=== PATIENT | male | born 1980 | race Caucasian/White ===

== ENCOUNTER → 2021-04-30 | Outpatient (CLI) | payer BC | LOC: COL.RAD 13:36 | DX: N50.89 Other specified disorders of the male genital organs (principal) ==

== ENCOUNTER → 2021-05-01 | Outpatient (CLI) | payer BC ==
[2021-05-01 22:10] LABS: HCG SERUM, QUANTITATIVE (BETA) <2 mIU/mL (0-5)
== END ==
LOC: COL.LAB 10:28
PROVIDERS: Urology
DX: D40.12 Neoplasm of uncertain behavior of left testis (principal)

== ENCOUNTER → 2021-07-30 | Outpatient (CLI) | payer BC ==
[2021-07-30 23:17] LABS: HCG SERUM, QUANTITATIVE (BETA) <2 mIU/mL (0-5)
== END ==
LOC: COL.LAB 12:09
DX: D40.12 Neoplasm of uncertain behavior of left testis (principal)

== ENCOUNTER → 2021-08-05 | Outpatient (CLI) | payer BC | LOC: COL.RAD 07:38 | DX: D40.12 Neoplasm of uncertain behavior of left testis (principal); Z90.79 Acquired absence of other genital organ(s) | CPT/HCPCS: Q9967 ==

== ENCOUNTER → 2021-10-27 | Outpatient (CLI) | payer BC | LOC: COL.RAD 09:18 | DX: Z90.79 Acquired absence of other genital organ(s) (principal); D40.12 Neoplasm of uncertain behavior of left testis | CPT/HCPCS: Q9967 ==

== ENCOUNTER → 2022-03-09 | Outpatient (CLI) | payer BC | LOC: COL.RAD 11:10 | DX: D40.12 Neoplasm of uncertain behavior of left testis (principal); Z90.79 Acquired absence of other genital organ(s) | CPT/HCPCS: Q9967 ==